=== PATIENT | female | born 1940 | race Caucasian/White ===

== ENCOUNTER 2016-09-20 13:37 | Observation (INO) | payer MEDICARE, BC ==
[2016-09-20] MEDS ORDERED: KETOROLAC TROMETHAMINE 30 MG/ML SOL IV ONE (14:49)
[2016-09-20] MEDS: SODIUM CHLORIDE 0.9% FLUSH 10 ML SOL IV PRN ×2 (14:58→21:56)
[2016-09-20] MEDS ORDERED: KETOROLAC TROMETHAMINE 30 MG/ML SOL IV PRN ×2 (15:55→19:53)
[2016-09-20] MEDS: ENOXAPARIN 100 MG SOL SC SCH (17:06)
[2016-09-20] MEDS ORDERED: WARFARIN SODIUM 2.5 MG TAB PO SCH (18:00)
[2016-09-21] MEDS: APAP/HYDROCODONE 325/5 TAB PO PRN ×3 (01:15→11:02)
[2016-09-21] MEDS: ENOXAPARIN 100 MG SOL SC SCH (06:57)
[2016-09-21 08:51] VITALS: BP 108/72; PULSE 82; RESP 18; TEMP 98.2; O2SAT 95
[2016-09-21] MEDS ORDERED: LISINOPRIL 5 MG TAB PO SCH (09:00)
[2016-09-21] MEDS ORDERED: CETIRIZINE HYDROCHLORIDE 10 MG TAB PO SCH (09:00)
[2016-09-21] MEDS ORDERED: WARFARIN SODIUM 5 MG TAB PO SCH (18:00)
== END 2016-09-21 11:20 | disposition home or self-care (01) | DRG 176 ==
LOC: RAD 13:37 → EDSTATUS 15:45 → ACUTE CARE 15:46
PROVIDERS: ADMIT Family Medicine; ATTEND Family Medicine
DX: I26.99 Other pulmonary embolism without acute cor pulmonale (principal); I10 Essential (primary) hypertension
CPT/HCPCS: 36415; 71260; 82565; 85610; J1650; J1885; Q9967

== ENCOUNTER 2016-09-22 14:14 | Emergency (ER) | payer MEDICARE, BC ==
[2016-09-22 15:02] VITALS: TEMP 98.4
[2016-09-22 15:06] LABS: BASOPHILS % (AUTO) 1 % (0-3); EOSINOPHILS % (AUTO) 1 % (0-9); HEMATOCRIT 36 % (35-47); MEAN CORPUSCULAR HGB CONC 35.2 gm/dl (32.0-36.0); MEAN CORPUSCULAR VOLUME 91 fL (81-99); MONOCYTES % (AUTO) 9.7 % (0-12); NEUTROPHILS % (AUTO) 81.9 % (37-80)
[2016-09-22] MEDS ORDERED: LORAZEPAM 0.5 MG TAB PO ONE (15:10)
[2016-09-22] MEDS ORDERED: LORAZEPAM 0.5 MG TAB ONE (15:11)
[2016-09-22 15:25] LABS: ALBUMIN 3.1 gm/dl (3.4-5.0); CALCIUM 9.1 mg/dl (8.5-10.1)
[2016-09-22 16:11] VITALS: BP 117/74; PULSE 74; RESP 16; O2SAT 98
== END 2016-09-22 16:17 | disposition home or self-care (01) | DRG 176 ==
LOC: ED 14:14
DX: I27.82 Chronic pulmonary embolism (principal); K59.09 Other constipation; Z79.01 Long term (current) use of anticoagulants
CPT/HCPCS: 36415; 71020; 80053; 85025; 85610; 99283; 99284

== ENCOUNTER 2016-09-23 08:05 | Observation (INO) | payer MEDICARE, BC ==
[2016-09-23] MEDS ORDERED: LORAZEPAM 2 MG/ML SOL IV ONE (08:22)
[2016-09-23] MEDS ORDERED: SODIUM CHLORIDE 0.9% 1000ML 1,000 ML IV SCH (08:30)
[2016-09-23 08:34] LABS: BASOPHILS % (AUTO) 1 % (0-3); EOSINOPHILS % (AUTO) 1 % (0-9); HEMATOCRIT 36 % (35-47); MEAN CORPUSCULAR HGB CONC 34.3 gm/dl (32.0-36.0); MEAN CORPUSCULAR VOLUME 91 fL (81-99); MONOCYTES % (AUTO) 8.5 % (0-12)
[2016-09-23 08:53] LABS: ALBUMIN 2.8 gm/dl (3.4-5.0); ALT 112 IU/L (14-63); CALCIUM 8.5 mg/dl (8.5-10.1); GLOM FILT RATE 37 mL/min (>60); POTASSIUM 4.1 mMol/L (3.5-5.1); SODIUM 134 mMol/L (136-145)
[2016-09-23] MEDS: SODIUM CHLORIDE 0.9% FLUSH 10 ML SOL IV PRN (09:43)
[2016-09-23] MEDS ORDERED: MORPHINE SULFATE 10 MG/ML SOL IV PRN (12:19)
[2016-09-23] MEDS ORDERED: ENOXAPARIN 100 MG SOL SC SCH (12:30)
[2016-09-23] MEDS: APAP/HYDROCODONE 325/5 TAB PO PRN ×2 (16:07→21:28)
[2016-09-23] MEDS ORDERED: WARFARIN SODIUM 5 MG TAB PO SCH (18:00)
[2016-09-23] MEDS: ENOXAPARIN 100 MG SOL SC SCH (18:15)
[2016-09-23] MEDS ORDERED: POLYETHYLENE GLYCOL 17 GM/1 TBS PDS PO SCH (21:00)
[2016-09-23] MEDS: DOXYCYCLINE 100 MG TAB PO SCH (21:28)
[2016-09-24] MEDS: APAP/HYDROCODONE 325/5 TAB PO PRN ×3 (02:28→12:10)
[2016-09-24] MEDS: LORAZEPAM 0.5 MG TAB PO PRN ×2 (02:28→12:10)
[2016-09-24] MEDS: SODIUM CHLORIDE 0.9% FLUSH 10 ML SOL IV PRN (02:37)
[2016-09-24 06:21] VITALS: TEMP 97.4
[2016-09-24] MEDS: ENOXAPARIN 100 MG SOL SC SCH (06:30)
[2016-09-24 07:48] VITALS: BP 112/76; PULSE 88; RESP 20; O2SAT 94
[2016-09-24] MEDS: DOXYCYCLINE 100 MG TAB PO SCH (08:18)
[2016-09-24] MEDS ORDERED: LISINOPRIL 5 MG TAB PO SCH (09:00)
== END 2016-09-24 14:30 | disposition home or self-care (01) | DRG 176 ==
LOC: ED 08:05 → ACUTE CARE 10:44 → UNDOADMOB 10:44 → ACUTE CARE 11:00
PROVIDERS: ADMIT Family Medicine; ATTEND Family Medicine
DX: I27.82 Chronic pulmonary embolism (principal); F41.9 Anxiety disorder, unspecified; K59.00 Constipation, unspecified; Z79.01 Long term (current) use of anticoagulants
CPT/HCPCS: 36415; 71275; 80053; 84484; 85025; 85610; 85730; 93005; 99285; J1650; J2270; Q9967

== ENCOUNTER 2017-11-21 10:53 | Outpatient (CLI) | payer MEDICARE, BC ==
[2016-09-24 07:48] VITALS: O2SAT 94
== END 2017-11-21 10:54 | disposition home or self-care (01) | DRG 556 ==
LOC: CONVCARE 10:53
PROVIDERS: ATTEND Orthopaedic Surgery
DX: M25.562 Pain in left knee (principal)
CPT/HCPCS: 73501

== ENCOUNTER 2018-02-10 08:06 | Day surgery (SDC) | payer MEDICARE, BC ==
[2018-02-10] MEDS ORDERED: PROPOFOL 500 MG/50 ML EMU IV ONE (09:02)
[2018-02-10] MEDS ORDERED: ONDANSETRON HCL 4 MG/2 ML SOL ONE (09:03)
[2018-02-10 09:54] VITALS: BP 121/79; PULSE 60; RESP 20; TEMP 96.9; O2SAT 97
== END 2018-02-10 10:10 | disposition home or self-care (01) | DRG 951 ==
LOC: SURG 08:06
PROVIDERS: ATTEND Surgery
DX: Z12.11 Encounter for screening for malignant neoplasm of colon (principal); K57.32 Diverticulitis of large intestine without perforation or abscess without bleeding
CPT/HCPCS: J2405; J2704